=== PATIENT | male | born 1985 | race Caucasian/White ===

== ENCOUNTER 2017-03-13 13:21 | Emergency (ER) | payer OTHER ==
[~2017-03-13] VITALS: Ht 172.7 cm; Wt 87.7 kg
[2017-03-13 13:30] VITALS: Ht 172.7 cm; Wt 87.7 kg
[2017-03-13] MEDS ORDERED: FAMOTIDINE 20 MG TAB PO STA (13:59)
[2017-03-13] MEDS ORDERED: ONDANSETRON 4 MG TAB PO ONE (14:00)
--- NOTE | 2017-03-13 14:05 | ERD ---
ER Documentation Chief Complaint Chief Complaint vomitx3 today; etoh abuse. drank 2 beers today HPI Patient is a 31-year-old male who presents for blood pressure check. He states that he also has questions about his medications. He does not have a regular doctor, but has come to the emergency department for alcohol withdrawal. He is taking Librium, but continues to drink daily. He reports occasional vomiting. He is taking famotidine, but states that he thinks it makes him feel more nauseous. He reports having 2 out of 10 epigastric abdominal pain. He denies dark stools or bloody emesis. He denies drug use. He denies chest pain or shortness of breath, denies decreased urine output. ROS All systems reviewed and are negative except as per history of present illness. Medications Home Meds Active Scripts Ondansetron Hcl* (Zofran*) 4 Mg Tablet, 4 MG PO Q8H Y for NAUSEA AND/OR VOMITING , #15 TAB Prov:LEONIE SANTIAGO MD 03/13/17 Famotidine* (Famotidine*) 20 Mg Tablet, 20 MG PO DAILY, #30 TAB Prov:LEONIE SANTIAGO MD 03/13/17 Allergies Allergies: Coded Allergies: No Known Allergy (Unverified , 03/13/17) PMhx/Soc Past medical history: Gastritis, alcohol abuse Past surgical history: Denies Social history: Drinks alcohol daily, smokes cigarettes, denies illicit drugs FmHx Family History: No coronary disease, No diabetes Physical Exam Vitals Vital Signs Date Time Temp Pulse Resp B/P Pulse Ox O2 Delivery O2 Flow Rate FiO2 03/13/17 15:44 98.3 86 20 138/74 98 Room Air 03/13/17 13:30 98.2 139 20 122/76 100 Physical Exam Const: Alert, mild odor of alcohol on breath, no acute distress, appropriately interactive Head: Atraumatic Eyes: Normal Conjunctiva, No pallor, no icterus ENT: Normal External Ears, Nose and Mouth. Mucous membranes moist Neck: Full range of motion. Resp: Clear to auscultation bilaterally, No wheezes, no rales Cardio: Mild tachycardia, regularrhythm, no murmurs Abd: Soft, non tender, non distended. Skin: No petechiae or rashes Back: No midline or flank tenderness Ext: No cyanosis, or edema Neur: Awake and alert, Cranial nerves II through XII intact bilaterally, strength and sensation full in 4 extremities, no tremor Psych: Normal Mood and Affect Result Diagram: 03/13/17 1410 03/13/17 1410 Results 24 hrs Laboratory Tests Test 03/13/17 14:10 White Blood Count 6.710^3/ul Red Blood Count 4.5510^6/ul Hemoglobin 15.1g/dl Hematocrit 41.9% Mean Corpuscular Volume 92.1fl Mean Corpuscular Hemoglobin 33.2pg Mean Corpuscular Hemoglobin Concent 36.0g/dl Red Cell Distribution Width 11.5% Platelet Count 7210^3/UL Mean Platelet Volume 11.3fl Neutrophils % 69.8% Lymphocytes % 18.7% Monocytes % 9.0% Eosinophils % 1.8% Basophils % 0.4% Nucleated Red Blood Cells % 0.0/100WBC Neutrophils # 4.710^3/ul Lymphocytes # 1.310^3/ul Monocytes # 0.610^3/ul Eosinophils # 0.110^3/ul Basophils # 0.010^3/ul Nucleated Red Blood Cells # 0.010^3/ul Sodium Level 138mmol/L Potassium Level 3.2mmol/L Chloride Level 94mmol/L Carbon Dioxide Level 28mmol/L Anion Gap 19 Blood Urea Nitrogen 8mg/dl Creatinine 0.81mg/dl Glucose Level 115mg/dl Calcium Level 10.1mg/dl Total Bilirubin 1.3mg/dl Direct Bilirubin 0.00mg/dl Indirect Bilirubin 1.3mg/dl Aspartate Amino Transf (AST/SGOT) 161IU/L Alanine Aminotransferase (ALT/SGPT) 149IU/L Alkaline Phosphatase 74IU/L Total Protein 8.4g/dl Albumin 4.7g/dl Globulin 3.70g/dl Albumin/Globulin Ratio 1.27 Lipase 358U/L Current Medications Medications (Trade) Dose Ordered Sig/Chadwick Route PRN Reason Start Time Stop Time Status Last Admin Dose Admin Famotidine (Pepcid) 20 mg ONCE STAT PO 03/13/17 13:59 03/13/17 14:01 DC 03/13/17 14:07 Ondansetron HCl (Zofran Tab) 4 mg ONCE ONCE PO 03/13/17 14:00 03/13/17 14:01 DC Potassium Chloride (Klor-Con 20) 20 meq ONCE STAT PO 03/13/17 15:16 03/13/17 15:30 DC Procedures/MDM EKG read by me: Time 1423, rate 92 Rhythm: Normal sinus [place]: Normal Intervals: Normal ST-T waves: no ischemic changes Ectopy: No Q-waves: No Impression: No evidence of ischemia or arrhythmia MDM: Patient is a 31-year-old male presents to the ER for a blood pressure check. He incidentally notes that he has had several episodes of vomiting and epigastric discomfort. He drinks alcohol heavily. His labs show signs of alcoholic hepatitis, and I suspect he may have an element of alcoholic gastritis. His lipase is slightly elevated, but not consistent with acute pancreatitis. He is tolerating oral intake in the ER. He was found to have mild hypokalemia and was given oral potassium repletion. He responded well to Pepcid and Zofran. He was initially tachycardic on arrival, but on EKG was found to have a normal heart rate. He did not exhibit signs concerning for alcohol withdrawal. He was advised of the need to follow-up with his PMD and to avoid alcohol. His blood pressure was not significantly elevated in the ER. Departure Diagnosis: Primary Impression: Nausea and vomiting Vomiting type: unspecified Vomiting Intractability: non-intractable Qualified Code: R11.2 - Non-intractable vomiting with nausea, unspecified vomiting type Additional Impressions: Hypokalemia Alcohol abuse Condition: LEONIE Alejandro MD Mar 13, 2017 14:05
[2017-03-13 14:37] LABS: ABNORMAL IP MESSAGE 1; BASOPHILS % 0.4 % (0.0-2.0); EOSINOPHILS # 0.1 10^3/ul (0.0-0.5); EOSINOPHILS % 1.8 % (0.0-7.0); HEMATOCRIT 41.9 % (42.0-52.0); HEMOGLOBIN 15.1 g/dl (14.0-18.0); LYMPHOCYTES # 1.3 10^3/ul (0.8-2.9); LYMPHOCYTES % 18.7 % (15.0-51.0); MEAN CORPUSCULAR HEMOGLOBIN 33.2 pg (29.0-33.0); MEAN CORPUSCULAR VOLUME 92.1 fl (82.0-101.0); MEAN PLATELET VOLUME 11.3 fl (7.4-10.4); MONOCYTE # 0.6 10^3/ul (0.3-0.9); NEUTROPHIL # 4.7 10^3/ul (1.6-7.5); NEUTROPHILS % 69.8 % (39.0-77.0); PLATELET COUNT 72 10^3/UL (140-415); POSITIVE DIFF @See below; RED BLOOD COUNT 4.55 10^6/ul (4.70-6.10); RED CELL DISTRIBUTION WIDTH 11.5 % (11.5-14.5); WHITE BLOOD COUNT 6.7 10^3/ul (4.8-10.8)
[2017-03-13 14:58] LABS: ALBUMIN 4.7 g/dl (3.3-4.9); ALBUMIN/GLOBULIN RATIO 1.27; BILIRUBIN,INDIRECT 1.3 mg/dl (0-1.1); BILIRUBIN,TOTAL 1.3 mg/dl (0.2-1.3); CALCIUM 10.1 mg/dl (8.4-10.2); CREATININE 0.81 mg/dl (0.61-1.24); POTASSIUM 3.2 mmol/L (3.5-5.1); TOTAL PROTEIN 8.4 g/dl (6.1-8.1)
[2017-03-13] MEDS ORDERED: POTASSIUM CHLORIDE (SR) 20 MEQ TAB PO STA (15:16)
[2017-03-13] MEDS ORDERED: FAMO20TA18 PO (15:19)
[2017-03-13] MEDS ORDERED: ONDA4TAB8 PO (15:19)
[2017-03-13 15:44] VITALS: BP 138/74; PULSE 86; RESP 20; TEMP 98.3
== END 2017-03-13 15:45 | disposition home or self-care (01) ==
LOC: E/R 13:21
DX: R11.10 Vomiting, unspecified (principal); R40.2252 Coma scale, best verbal response, oriented, at arrival to emergency department; F10.10 Alcohol abuse, uncomplicated; F17.210 Nicotine dependence, cigarettes, uncomplicated; R10.13 Epigastric pain; R40.2142 Coma scale, eyes open, spontaneous, at arrival to emergency department; R40.2362 Coma scale, best motor response, obeys commands, at arrival to emergency department
CPT/HCPCS: 36415; 80053; 83690; 85025; 93005; Z7502; Z7610

== ENCOUNTER 2017-04-29 08:14 | Emergency (ER) | END 2017-04-29 18:28 | disposition home or self-care (01) ==

== ENCOUNTER 2018-11-29 04:57 | Emergency (ER) | payer OTHER ==
[~2018-11-29] VITALS: Ht 185.4 cm; Wt 83.0 kg
[~2018-11-29 04:57] MED LIST: CEPH-443 PO; CHLO25CA9 PO; FAMO-96 PO; FAMO40TA5 PO; IBUP-1542 PO; NAPR-985 PO; TRAM50TA2 PO
[2018-11-29 04:58] VITALS: BP 117/75; PULSE 86; RESP 20; Ht 185.4 cm; Wt 83.0 kg
[2018-11-29] MEDS ORDERED: ACETAMINOPHEN 500 MG TAB PO STA (05:41)
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
[2018-11-29] MEDS ORDERED: IBUPROFEN 600 MG TAB PO ONE (06:00)
[2018-11-29] MEDS ORDERED: LIDOCAINE 1% (MPF) 5 ML VIAL INJ ONE (06:30)
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
== END 2018-11-29 07:30 | disposition home or self-care (01) ==
LOC: FTE 04:57
DX: S61.412A Laceration without foreign body of left hand, initial encounter (principal); F17.210 Nicotine dependence, cigarettes, uncomplicated; X99.1XXA Assault by knife, initial encounter
CPT/HCPCS: 12001; 73130; Z7502; Z7610

== ENCOUNTER 2018-12-05 07:56 | Emergency (ER) | payer OTHER ==
[~2018-12-05] VITALS: Ht 185.4 cm; Wt 79.8 kg
[~2018-12-05 07:56] MED LIST changes: +ONDA4TAB14 PO; +PANT40TA3 PO
[2018-12-05 08:01] VITALS: Ht 185.4 cm; Wt 79.8 kg
[2018-12-05] MEDS ORDERED: ONDANSETRON 4 MG INJ IM STA (11:33)
[2018-12-05 16:56] VITALS: BP 128/64; PULSE 74; RESP 19
== END 2018-12-05 16:57 | disposition home or self-care (01) ==
LOC: E/R 07:56
DX: F10.920 Alcohol use, unspecified with intoxication, uncomplicated (principal); F17.210 Nicotine dependence, cigarettes, uncomplicated; K29.20 Alcoholic gastritis without bleeding
CPT/HCPCS: 80307; 96372; J2405; Z7502

== ENCOUNTER 2018-12-20 23:46 | Emergency (ER) | payer OTHER ==
[~2018-12-20] VITALS: Ht 185.4 cm; Wt 79.0 kg
[~2018-12-20 23:46] MED LIST changes: -CEPH-443 PO; -CHLO25CA9 PO; -FAMO-96 PO; -FAMO40TA5 PO; -IBUP-1542 PO; -NAPR-985 PO; -TRAM50TA2 PO
[2018-12-20 23:47] VITALS: Ht 185.4 cm; Wt 79.0 kg
[2018-12-21] MEDS ORDERED: PANTOPRAZOLE 40 MG INJ IV STA (03:59)
[2018-12-21] MEDS ORDERED: ONDANSETRON 4 MG INJ IV STA (03:59)
[2018-12-21] MEDS ORDERED: SOD CHLORIDE 0.9% 1,000 ML IV STA (03:59)
[2018-12-21 05:37] VITALS: BP 138/81; PULSE 75; RESP 21
== END 2018-12-21 05:38 | disposition home or self-care (01) ==
LOC: E/R 23:46
DX: F10.920 Alcohol use, unspecified with intoxication, uncomplicated (principal); F17.210 Nicotine dependence, cigarettes, uncomplicated
CPT/HCPCS: 36415; 71045; 80053; 84484; 85025; 85610; 85730; 86850; 86900; 86901; 93005; 96374; 96375; C9113; J2405; J7030; Z7502